=== PATIENT | female | born 1950 | race Caucasian/White ===

== ENCOUNTER → 2018-03-01 | Day surgery (SDC) | payer MEDICARE, BC | LOC: MSO 10:31 | DX: Z12.11 Encounter for screening for malignant neoplasm of colon (principal); Z86.010 Personal history of colon polyps; I10 Essential (primary) hypertension; E78.5 Hyperlipidemia, unspecified; E11.9 Type 2 diabetes mellitus without complications; K21.9 Gastro-esophageal reflux disease without esophagitis; Z79.84 Long term (current) use of oral hypoglycemic drugs; Z79.82 Long term (current) use of aspirin | CPT/HCPCS: G0105; 00812; J2704; J7030 ==

== ENCOUNTER → 2018-08-29 | Outpatient (CLI) | payer MEDICARE, BC | LOC: RAD 16:41 | DX: I35.0 Nonrheumatic aortic (valve) stenosis (principal); R53.83 Other fatigue; R00.1 Bradycardia, unspecified ==

== ENCOUNTER 2020-02-23 16:52 | Emergency (ER) | payer MEDICARE, BC ==
[~2020-02-23] VITALS: Ht 162.6 cm; Wt 100.0 kg
[2020-02-23] MEDS ORDERED: ELIQUIS5 MG PO (17:16)
[2020-02-23] MEDS ORDERED: GLUCOPHAGE1000 MG PO (17:16)
[2020-02-23] MEDS ORDERED: HYDROCHLOROTH12.5 M1 PO (17:17)
[2020-02-23] MEDS ORDERED: CRESTOR20 MG PO (17:17)
[2020-02-23] MEDS ORDERED: COZAAR25 M1 PO (17:17)
[2020-02-23 19:41] VITALS: BP 140/69
== END 2020-02-23 19:41 | disposition home or self-care (01) ==
LOC: ED 16:52
DX: S09.90XA Unspecified injury of head, initial encounter (principal); S00.83XA Contusion of other part of head, initial encounter; E11.9 Type 2 diabetes mellitus without complications; I10 Essential (primary) hypertension; I48.91 Unspecified atrial fibrillation; Z79.01 Long term (current) use of anticoagulants; Z79.84 Long term (current) use of oral hypoglycemic drugs; Z95.0 Presence of cardiac pacemaker; W55.22XA Struck by cow, initial encounter

== ENCOUNTER 2021-09-08 04:24 | Emergency (ER) | payer MEDICARE, BC ==
[~2021-09-08] VITALS: Ht 170.2 cm; Wt 100.0 kg
[~2021-09-08 04:24] MED LIST: COZAAR25 M1 PO; CRESTOR20 MG PO; ELIQUIS5 MG PO; GLUCOPHAGE1000 MG PO; HYDROCHLOROTH12.5 M1 PO
[2021-09-08] MEDS ORDERED: TERBINAFINE250 MG PO (04:37)
[2021-09-08] MEDS ORDERED: LOSARTAN POTASS1 TA1 PO (04:38)
[2021-09-08 07:10] VITALS: BP 132/76
== END 2021-09-08 07:10 | disposition home or self-care (01) ==
LOC: ED 04:24
DX: S06.0X0A Concussion without loss of consciousness, initial encounter (principal); S51.811A Laceration without foreign body of right forearm, initial encounter; S00.83XA Contusion of other part of head, initial encounter; M54.2 Cervicalgia; E11.9 Type 2 diabetes mellitus without complications; E78.5 Hyperlipidemia, unspecified; Z79.01 Long term (current) use of anticoagulants; Z79.84 Long term (current) use of oral hypoglycemic drugs; Z79.899 Other long term (current) drug therapy; W01.198A Fall on same level from slipping, tripping and stumbling with subsequent striking against other object, initial encounter; Y92.009 Unspecified place in unspecified non-institutional (private) residence as the place of occurrence of the external cause

== ENCOUNTER → 2023-06-14 | Day surgery (SDC) | payer MEDICARE, BC ==
[~2023-06-14] MED LIST changes: +LOSARTAN POTASS1 TA1 PO; +TERBINAFINE250 MG PO
== END | disposition home or self-care (01) ==
LOC: MSO 07:41
DX: Z12.11 Encounter for screening for malignant neoplasm of colon (principal); D12.5 Benign neoplasm of sigmoid colon; Z95.0 Presence of cardiac pacemaker
CPT/HCPCS: 00811; J2704; J7120